=== PATIENT | male | born 1960 | race Caucasian/White ===

== ENCOUNTER 2017-05-15 13:47 | Emergency (ER) | payer MEDICAID ==
[~2017-05-15] VITALS: Ht 188 cm; Wt 75.5 kg
[2017-05-15 15:07] LABS: MEAN CORPUSCULAR HEMOGLOBIN 22.1 pg (27.5-34.5); MEAN CORPUSCULAR HGB CONC 30.9 g/dL (33.2-36.2); MEAN CORPUSCULAR VOLUME 71.4 fL (81-97); PLATELET COUNT 781 x10^3/uL (130-400); RED BLOOD COUNT 4.15 x10^6/uL (4.38-5.82); RED CELL DISTRIBUTION WIDTH 19.6 % (9.4-14.8)
[2017-05-15 15:18] LABS: ALANINE AMINOTRANSFERASE 23 U/L (12-78); ALBUMIN 1.9 g/dL (3.4-5.0); ANION GAP 6 mmol/L (5-15); CHLORIDE 105 mmol/L (98-107); CREATININE 0.66 mg/dL (0.7-1.3)
[2017-05-15 15:21] LABS: ALKALINE PHOSPHATASE 179 U/L (45-117); BILIRUBIN,TOTAL 0.3 mg/dL (0.2-1.0); TOTAL PROTEIN 7.2 g/dL (6.4-8.2)
[2017-05-15 15:24] LABS: MD YES
[2017-05-15 15:26] LABS: BAND#(MANUAL) 1.19 x10^3/uL; BANDS%(MANUAL) 5 % (0-7); LYMPH#(MANUAL) 0.95 x10^3/uL (1-3.4); LYMPHS% (MANUAL) 4 % (22-44); MONOS% (MANUAL) 5 % (2-9); SEG#(MANUAL) 20.38 x10^3/uL (1.8-6.8); SEGS% (MANUAL) 86 % (42-75)
[2017-05-15 15:27] LABS: <PLATELET ESTIMATE> INCREASED; ANISOCYTOSIS 1+; HYPOCHROMIA 1+; MONOS#(MANUAL) 1.19 x10^3/uL (0.3-2.7); POLYCHROMASIA 1+
[2017-05-15 15:28] LABS: LARGE PLATELETS 1+
[2017-05-15 17:44] VITALS: BP 156/86
== END 2017-05-15 17:48 | disposition home or self-care (01) ==
LOC: ED 16:49
DX: D72.829 Elevated white blood cell count, unspecified (principal); D64.9 Anemia, unspecified; I10 Essential (primary) hypertension
CPT/HCPCS: 36415; 71046; 80053; 83605; 85025; 99285

== ENCOUNTER 2017-07-09 12:13 | Emergency (ER) | payer MEDICAID ==
[~2017-07-09] VITALS: Ht 188 cm; Wt 77.4 kg
[2017-07-09 13:44] LABS: MEAN CORPUSCULAR HEMOGLOBIN 21.8 pg (27.5-34.5); MEAN CORPUSCULAR HGB CONC 31.6 g/dL (33.2-36.2); MEAN PLATELET VOLUME 7.6 fL (7.4-10.4); PLATELET COUNT 507 x10^3/uL (130-400); RED BLOOD COUNT 3.86 x10^6/uL (4.38-5.82); RED CELL DISTRIBUTION WIDTH 21.2 % (9.4-14.8)
[2017-07-09 13:56] LABS: ALANINE AMINOTRANSFERASE 36 U/L (12-78); ALBUMIN 1.5 g/dL (3.4-5.0); ANION GAP 9 mmol/L (5-15); CALCIUM 8.9 mg/dL (8.5-10.1); CHLORIDE 103 mmol/L (98-107)
[2017-07-09 13:58] LABS: ALKALINE PHOSPHATASE 145 U/L (45-117); BILIRUBIN,TOTAL 0.5 mg/dL (0.2-1.0); CREATININE 1.06 mg/dL (0.7-1.3); TOTAL PROTEIN 6.4 g/dL (6.4-8.2)
[2017-07-09 14:12] LABS: BAND#(MANUAL) 0.29 x10^3/uL; BANDS%(MANUAL) 1 % (0-7); LYMPH#(MANUAL) 1.71 x10^3/uL (1-3.4); LYMPHS% (MANUAL) 6 % (22-44); MD YES; MONOS#(MANUAL) 1.14 x10^3/uL (0.3-2.7); MONOS% (MANUAL) 4 % (2-9); SEG#(MANUAL) 25.37 x10^3/uL (1.8-6.8); SEGS% (MANUAL) 89 % (42-75)
[2017-07-09 14:13] LABS: ANISOCYTOSIS 2+; HYPOCHROMIA 1+; MICROCYTOSIS 1+; POLYCHROMASIA 1+
[2017-07-09 14:14] LABS: <PLATELET ESTIMATE> INCREASED; LARGE PLATELETS 1+
[2017-07-09 14:32] VITALS: BP 116/73
== END 2017-07-09 14:53 | disposition home or self-care (01) ==
LOC: ED 14:30
DX: K64.8 Other hemorrhoids (principal); D64.9 Anemia, unspecified; R59.0 Localized enlarged lymph nodes; I10 Essential (primary) hypertension; F15.10 Other stimulant abuse, uncomplicated; Z87.891 Personal history of nicotine dependence
CPT/HCPCS: 36415; 80053; 85025; 99284; 99285